=== PATIENT | female | born 1970 | race Caucasian/White ===

== ENCOUNTER 2020-05-18 21:08 | Emergency (ER) | payer MEDICARE, SELFPAY ==
--- NOTE | ~2020-05-18 | CT_ITS ---
EXAMINATION: CT brain wo con EXAM DATE: 05/18/2020 21:56 INDICATION: Generalized headache. TECHNIQUE: Spiral CT of the head was performed without contrast. Axial, coronal and sagittal images were reviewed. The dose-length product (DLP) for this examination was 605.33 mGy-cm. The exposure w as tailored according to patient size, and iterative reconstruction (ASIR) was used as additional dos e reduction technique. There is no prior study for comparison. FINDINGS: There is no acute intraparenchymal hemorrhage. No evidence of intraparenchymal brain mass lesion. No evidence of acute infarction. There is no mass effect or midline shift. The ventricles are normal in size. There are no extra-axial collections. There are no acute calvarial fractures. T he orbits are unremarkable. Soft tissue is unremarkable. The visualized sinuses and mastoid air melita ls are well aerated. IMPRESSION: 1. No acute intracranial findings. Reviewed, dictated and finalized at location A.
[2020-05-18 21:15] VITALS: BP 108/64; PULSE 75; RESP 16; TEMP 36.9; O2SAT 98
--- NOTE | 2020-05-18 21:20 | ED.GENADULT ---
HPI - General Adult General Chief complaint: Psychiatric Symptoms <Wilson Stevens DO - Last Filed: 05/25/20 23:39> Stated complaint: SI <Wilson Stevens DO - Last Filed: 05/25/20 23:39> Time Seen by Provider: 05/19/20 07:07 <Wilson Stevens DO - Last Filed: 05/25/20 23:39> Source: RN notes reviewed <Wilson Stevens DO - Last Filed: 05/25/20 23:39> History of Present Illness HPI narrative: Patient presents emergency department via EMS for suicidal ideation. Patient states she has been having suicidal thoughts. She states that yesterday she had access to a gun and thought about she and her self but did not act on her thoughts. She states she is depressed because her children want nothing to do with her. Patient states she does have a history of depression bipolar but is not been taking her medications regularly. She denies any other attempts at harming herself denies any recent illness <Wilson Stevens DO - Last Filed: 05/25/20 23:39> Related Data Home medications: Home Medications Medication Instructions Recorded Confirmed clonazepam [Klonopin] 1 mg PO BID 05/18/20 divalproex [Depakote] 500 mg PO Q12H 05/18/20 duloxetine [Cymbalta] 30 mg PO DAILY 05/18/20 pyrilamine-chlophedianol [Ninjacof] ml PO 05/18/20 tizanidine [Zanaflex] 4 mg PO BID PRN 05/18/20 tramadol mg PO PRN 05/18/20 venlafaxine [Effexor XR] 150 mg PO DAILY 05/18/20 zolpidem 10 mg PO HS PRN 05/18/20 <Wilson Stevens DO - Last Filed: 05/25/20 23:39> Allergies/adverse reactions: Allergies Allergy/AdvReac Type Severity Reaction Status Date / Time All antibiotecs Allergy Severe Anaphylaxis Uncoded 05/18/20 21:49 <DO Nicole Harrison Last Filed: 05/25/20 23:39> Review of Systems Review of Systems: Narrative: Gen.: Denies fevers or chills ENT: Denies congestion Respiratory: Denies shortness of breath or cough CV: Denies chest pain or palpitations GI: Denies abdominal pain nausea, emesis or diarrhea Musculoskeletal: Denies back pain or muscle pain Neuro: Denies numbness, tingling, weakness or focal weakness Skin: Denies rash Psych: See HPI Except as documented, all other systems reviewed and negative <Wilson Stevens DO - Last Filed: 05/25/20 23:39> [facility] Past Medical History Medical History: Medical History (Updated 05/21/20 @ 00:00 by Jairo Garcia) Bipolar disorder Depression <Wilson Stevens DO - Last Filed: 05/25/20 23:39> Social History Social History: Social History (Updated 05/18/20 @ 21:21 by Wilson Stevens DO) Smoking packs per day: 1 Smoking cigarettes per day: 20.0 <Wilson Stevens DO - Last Filed: 05/25/20 23:39> Exam Narrative: Exam Narrative: APPEARANCE: No acute distress, nontoxic, resting in bed EYES: EOMI HEENT: Normocephalic, atraumatic, OMM RESPIRATORY: No respiratory distress Clear to auscultation bilaterally with no rhonchi wheezing or rales. CARDIOVASCULAR: Regular rate and rhythm without murmurs rubs or gallops. ABDOMINAL: Soft, nontender, nondistended, no rebound or guarding MUSCULOSKELETAl: Moves all extremities. No clubbing, cyanosis or edema. NEURO: Awake and alert x 3. Following commands, speech normal, no focal deficits SKIN:: Warm, dry. No rashes lesions or abrasions PSYCHIATRIC: Normal affect/mood, <Wilson Stevens DO - Last Filed: 05/25/20 23:39> Course Course Emergency Course: Patient evaluated by Katie at [facility]. At this time is felt the patient requires inpatient admission Discussed with patient her UTI she states she is allergic to all antibiotics but can take Levaquin. States she cannot take Cipro but Levaquin only <Wilson Stevens DO - Last Filed: 05/25/20 23:39> Reevaluation(s) Reevaluation #1: PAtient states she is ready to go home. She states she is not suicidal . She reported prior to coming in she just wanted to be by herself but she was not going to hurt he
[2020-05-18 21:40] LABS: Glucose Point of Care 70 (65-105)
[2020-05-18 21:56] LABS: Basophils Percent Auto 0.3 % (0.2-1.2); Eosinophils Absolute Auto 0.7 K/mm3 (0-0.3); Eosinophils Percent Auto 11.4 % (0-4.4); Hemoglobin 12.3 g/dL (12.0-15.0); Immature Granulocyte Absolute 0.02 K/mm3 (0.00-0.031); Immature Granulocyte Percent A 0.3 % (0-0.5); Lymphocytes Absolute Auto 2.23 K/mm3 (0.9-3.2); Mean Corpuscular HGB Conc 33.2 g/dl (32-36); Mean Corpuscular Hemoglobin 30.7 pg (26-34); Mean Corpuscular Volume 92.3 fl (80-100); Mean Platelet Volume 11.6 fl (7.4-10.4); Monocytes Absolute Auto 0.7 K/mm3 (0.1-0.6); Monocytes Percent Auto 12.4 % (2.6-8.5); Neutrophils Absolute Auto 2.1 K/mm3 (1.3-6.7); Neutrophils Percent Auto 36.6 % (45.5-73.1); Platelet Count Result 209 k/mm3 (150-375); Red Blood Count 4.01 M/mm3 (4.2-5.4); Red Cell Distribution Width 13.1 % (11.5-14.5); White Blood Count 5.7 K/mm3 (4.5-10.0)
[2020-05-18 22:00] LABS: Add Urine Microscopic? YES; Appearance Urine Clear (Clear); Bacteria Urine Trace /hpf; Bilirubin Urine Negative (Negative); Blood Urine 2+ (Negative); Color Urine Yellow (Yellow); Glucose Urine UA Negative (Negative); Ketones Urine Trace mg/dL (Negative); Leukocyte Esterase Ur 3+ LEU/UL (Negative); Mucus Urine Few /lpf; Nitrate Urine Negative (Negative); Protein Urine Negative (Negative); Specific Grav Ur 1.014 (1.001-1.035); Squamous Epithelial Cell Urine Many /hpf (Few); Urobilinogen Urine Negative mg/dL (<2.0); WBC Urine 16-20 /hpf
[2020-05-18 22:07] LABS: Ethanol < 10 mg/dL (<10)
[2020-05-18 22:13] LABS: Amphetamine Screen Urine Negative (Negative); Barbiturate Screen Urine Negative (Negative); Benzodiazepines Screen Urine Negative (Negative); Cannabinoid Screen Urine Negative (Negative); Cocaine Screen Urine Negative (Negative); Methadone Screen Urine Negative (Negative); Opiate Screen Urine Negative (Negative); Phencyclidine Screen Urine Negative (Negative)
[2020-05-18 22:15] LABS: Alanine Aminotransferase 70 U/L (4-35); Alkaline Phosphatase 122 U/L (38-126); Aspartate Amino Transferase 76 U/L (14-36); Bilirubin,Total 0.5 mg/dL (0.2-1.3); Blood Urea Nitrogen 4 mg/dL (7-17); Calcium 8.9 mg/dL (8.4-10.2); Carbon Dioxide 31 mmol/L (22-30); Chloride 103 mmol/L (98-107); Estimated CRCL calculation 66 ml/min; Estimated Glomerular Filt Rate > 60; Glucose 104 mg/dL (65-105); Potassium 3.6 mmol/L (3.4-5.0); Sodium 138 mmol/L (137-145)
[2020-05-18 22:34] LABS: Glucose Point of Care 77 (65-105)
[2020-05-18] MEDS: ONDANSETRON INJ 4 MG/2 ML VIAL IV PUSH (22:46)
--- NOTE | 2020-05-18 23:21 | PC.NURSE ---
Crisis outreach dispatcher Andree given information on patient-she will dispatch an administrative job titles
--- NOTE | 2020-05-19 | PC.NURSE ---
Katie from Crisis here to evaluate patient
[2020-05-19] MEDS: NICOTINE (*PBKC) 21 MG PATCH 1 PATCH TRANSDERM ×2 (00:02→21:01)
--- NOTE | 2020-05-19 01:44 | PC.NURSE ---
pt given 0.5 ativan IV. bottle fell to floor and broke , unable to scan.
[2020-05-19 02:10] VITALS: BP 114/75; PULSE 63; RESP 16; O2SAT 97
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
--- NOTE | 2020-05-19 02:52 | PC.NURSE ---
Chart faxed to Elinor in [facility] in [facility]
--- NOTE | 2020-05-19 04:31 | PC.NURSE ---
Patient requesting to be given her Ambien from my pill bottles to sleep --patient has already been told that she was given Ativan and would not receive Ambien also. Dr Stevens also at bedside to tell her the same. Patient requesting additional Tylenol for continued headache-again advised that time frame was too close--Dr Stevens made offer of Ibuprofen which patient was agreeable to. Katie called reporting that she spoke with [facility]'s intake and they now want entire chart faxed over (done)
[2020-05-19] MEDS: IBUPROFEN 600 MG TABLET PO (05:04)
[2020-05-19] MEDS: LORAZEPAM 0.5 MG TABLET PO (06:12)
[2020-05-19 07:31] VITALS: BP 114/64; PULSE 64; RESP 18; TEMP 36.3; O2SAT 98
--- NOTE | 2020-05-19 08:10 | PC.NURSE ---
Pt found walking out the ambulance doors, rn hemodialysis charge and MD followed and able to get patient back inside without struggle. Pt moved to room 15 with security at bedside
--- NOTE | 2020-05-19 08:12 | PC.NURSE ---
Pt requesting something to help her sleep. notified
[2020-05-19] MEDS: LORAZEPAM 1 MG TABLET PO (08:25)
--- NOTE | 2020-05-19 08:27 | PC.NURSE ---
Pt stating Im not suicidal or homicidal, why are you keeping me here. I explained that the [employer] lost my medications for a week and i just got them back
--- NOTE | 2020-05-19 09:03 | PC.NURSE ---
Prabhu called to check status of pt placement. Told her that I had not heard back from any facility. she said she would call the facilities and let me know what she finds out
[2020-05-19 10:32] VITALS: BP 125/79; PULSE 66; RESP 16; TEMP 37.2; O2SAT 99
[2020-05-19 11:02] LABS: Valproic Acid 46.1 ug/mL (50-120)
[2020-05-19] MEDS: ACETAMINOPHEN 500 MG TABLET 1000 MG PO (11:15)
--- NOTE | 2020-05-19 12:26 | PC.NURSE ---
Addendum entered by Genevieve Ramos RN 05/19/20 13:51: AT 1030 I ASSUMED CARE OF PT. Original Note: ASSUMED CARE OF PT. RESTING QUIETLY IN ROOM WITH SITTER CONTINUING TO OBSERVE THE PT. LUNCH ORDERED AND VS OBTAINED. PT UPDATED ON STATUS OF POTENTIAL TRANSFER FACILITIES. WILL CONTINUE TO MONITOR
[2020-05-19 13:30] VITALS: BP 130/86; PULSE 80; RESP 16; TEMP 36.8; O2SAT 99
--- NOTE | 2020-05-19 14:04 | PC.NURSE ---
pt c/o of itching and redness to lower arms. asked for benadryl vrbo to give benadryl X1 po to pt from Lenny BRANDT
[2020-05-19 16:00] VITALS: BP 127/89; PULSE 82; RESP 16; TEMP 36.9; O2SAT 100
[2020-05-19 18:00] VITALS: BP 128/77; PULSE 63; RESP 14; TEMP 36.6; O2SAT 100
--- NOTE | 2020-05-19 19:16 | PC.NURSE ---
Received report from AIDEN Blevins. Pt asleep in room, 1:1 staff sitter at bedside. Pt aida CAMARGO swabbed at 1800.
--- NOTE | 2020-05-19 19:42 | ECG_ITS ---
Measurements Intervals [place] Rate: 59 P: 58 NV: 156 QRS: 43 QRSD: 90 T: 58 QT: 421 QTc: 418 Interpretive Statements SINUS BRADYCARDIA WITH MARKED SINUS ARRHYTHMIA BASELINE WANDER- V3-V5 BORDERLINE ECG Electronically Signed On 05-20-2020 7:06:13 CDT by Aaron Song D.O.
[2020-05-19 20:17] LABS: Magnesium 2.1 mg/dL (1.6-2.3)
--- NOTE | 2020-05-19 20:22 | PC.NURSE ---
Pt gave permission to speak with her mother, Marysol. [phone].
[2020-05-19] MEDS: TIZANIDINE HCL 4 MG TABLET PO (21:01)
[2020-05-19] MEDS: clonazePAM 0.5 MG TABLET 1 MG PO (21:01)
--- NOTE | 2020-05-19 21:24 | PC.NURSE ---
Pt asleep, EKG obtained. Pt denies needs at this time,1:1 at bedside. Will continue to monitor.
--- NOTE | 2020-05-19 23:06 | PC.NURSE ---
report given to AIDEN Topete
--- NOTE | 2020-05-19 23:15 | PC.NURSE ---
Patient resting on stretcher, sitter at bedside. Care assumed for this patient.
[2020-05-20] MEDS: IBUPROFEN 600 MG TABLET PO (05:27)
[2020-05-20] MEDS: PHENAZOPYRIDINE HCL 100 MG TABLET 200 MG PO (05:27)
--- NOTE | 2020-05-20 07:42 | PC.NURSE ---
Breakfast tray ordered for patient at this time.
[2020-05-20] MEDS: clonazePAM 0.5 MG TABLET 1 MG PO (08:51)
[2020-05-20] MEDS: TIZANIDINE HCL 4 MG TABLET PO (09:05)
[2020-05-20] MEDS: DULOXETINE HCL 30 MG CAPSULE.DR PO (09:05)
[2020-05-20] MEDS: NICOTINE (*PBKC) 21 MG PATCH 1 PATCH TRANSDERM (09:05)
[2020-05-20] MEDS: VENLAFAXINE HCL XR 75 MG CAP.ER.24H 150 MG PO (09:05)
--- NOTE | 2020-05-20 12:30 | PC.NURSE ---
Patient requesting pain medication for back pain at this time, EDP aware, no new orders
--- NOTE | 2020-05-20 13:00 | PC.NURSE ---
Patient declines lunch at this time.
[2020-05-20] MEDS: DIVALPROEX SODIUM 250 MG TABEC 500 MG PO (14:21)
[2020-05-20] MEDS: traMADol HCL 50 MG TABLET PO (14:21)
[2020-05-20 15:46] VITALS: BP 119/89; PULSE 66; RESP 18; O2SAT 99
[2020-05-20 16:48] VITALS: BP 133/91; PULSE 64; RESP 16; TEMP 37.4; O2SAT 100
[2020-05-20 18:54] LABS: SARS-CoV-2 RNA PCR Negative
== END 2020-05-20 16:49 | disposition home or self-care (01) ==
PROVIDERS: Emergency Medicine; Emergency Provider General Practice
DX: R45.851 Suicidal ideations (principal); F31.9 Bipolar disorder, unspecified; F17.210 Nicotine dependence, cigarettes, uncomplicated; R00.1 Bradycardia, unspecified; Z11.59 Encounter for screening for other viral diseases; Z79.899 Other long term (current) drug therapy
CPT/HCPCS: 36415; 70450; 80053; 80164; 80307; 81001; 81025; 82948; 83735; 84443; 85025; 87086; 87088; 87635; 93005; 96365; 96375; 99284; A9270; C9803; J0131; J2060; J2405; U0003

== ENCOUNTER 2020-06-17 15:53 | Observation (INO) | payer MEDICARE, SELFPAY ==
[2020-06-17] VITALS (49 sets, daily range): BP systolic 99–140; BP diastolic 53–82; PULSE 37–84; RESP 10–30; TEMP 36.5–37; O2SAT 92–100; BMI 26.6; BMI 25.4
--- NOTE | ~2020-06-17 | US_ITS ---
EXAMINATION: US right upper quadrant DATE: 06/18/2020 10:10 INDICATION: Abnormal liver function tests. TECHNIQUE: Multiple grayscale and Doppler ultrasound images of the abdomen were obtained. COMPARISON: None FINDINGS: The visualized portions of the head and body of the pancreas are normal. The liver is abad l without focal lesion. There is normal flow in main portal vein. The gallbladder is absent. The comm on duct is normal and measures 3 mm. IMPRESSION: 1. Normal right upper quadrant ultrasound status post cholecystectomy. Reviewed, dictated and finalized at location A.
--- NOTE | 2020-06-17 16:46 | ECG_ITS ---
Measurements Intervals [place] Rate: 49 P: 146 PA: 132 QRS: 115 QRSD: 88 T: 151 QT: 447 QTc: 406 Interpretive Statements SINUS BRADYCARDIA ARM LEADS REVERSED BORDERLINE T WAVE ABNORMALITY- ANT/INF LEADS ABNORMAL ECG Electronically Signed On 06-18-2020 10:23:32 CDT by Aaron Song D.O.
--- NOTE | 2020-06-17 17:06 | PC.NURSE ---
pt reports having another episode at this time. her heart rate jumped from 40 to 79 - observed on the monitor. pt is diaphoretic and nauseated at this time.
[2020-06-17 17:25] LABS: Basophils Percent Auto 0.4 % (0.2-1.2); Eosinophils Percent Auto 0.5 % (0-4.4); Hematocrit 41.8 % (37.0-47.0); Hemoglobin 14.1 g/dL (12.0-15.0); Immature Granulocyte Absolute 0.02 K/mm3 (0.00-0.031); Immature Granulocyte Percent A 0.3 % (0-0.5); Lymphocytes Absolute Auto 1.51 K/mm3 (0.9-3.2); Lymphocytes Percent Auto 19.9 % (18.3-44.2); Mean Corpuscular HGB Conc 33.7 g/dl (32-36); Mean Corpuscular Hemoglobin 31.4 pg (26-34); Mean Corpuscular Volume 93.1 fl (80-100); Mean Platelet Volume 10.8 fl (7.4-10.4); Monocytes Absolute Auto 0.8 K/mm3 (0.1-0.6); Monocytes Percent Auto 10.6 % (2.6-8.5); Neutrophils Absolute Auto 5.2 K/mm3 (1.3-6.7); Neutrophils Percent Auto 68.3 % (45.5-73.1); Platelet Count Result 241 k/mm3 (150-375); Red Blood Count 4.49 M/mm3 (4.2-5.4); Red Cell Distribution Width 13.2 % (11.5-14.5); White Blood Count 7.6 K/mm3 (4.5-10.0)
[2020-06-17 17:37] LABS: Alanine Aminotransferase 115 U/L (4-35); Albumin Level 4.6 g/dL (3.5-5.1); Alkaline Phosphatase 162 U/L (38-126); Anion Gap 13.5 mmol/L (7-16); Aspartate Amino Transferase 64 U/L (14-36); Bilirubin,Total 0.6 mg/dL (0.2-1.3); Blood Urea Nitrogen 11 mg/dL (7-17); Calcium 9.7 mg/dL (8.4-10.2); Carbon Dioxide 30 mmol/L (22-30); Chloride 99 mmol/L (98-107); Estimated CRCL calculation 66 ml/min; Estimated Glomerular Filt Rate > 60; Glucose 109 mg/dL (65-105); Potassium 4.5 mmol/L (3.4-5.0); Sodium 138 mmol/L (137-145)
[2020-06-17 17:41] LABS: Add Urine Microscopic? YES; Appearance Urine Clear (Clear); Bacteria Urine Trace /hpf; Bilirubin Urine Negative (Negative); Blood Urine Negative (Negative); Color Urine Yellow (Yellow); Glucose Urine UA Negative (Negative); Ketones Urine Negative (Negative); Leukocyte Esterase Ur 2+ LEU/UL (Negative); Mucus Urine Heavy /lpf; Nitrate Urine Negative (Negative); Protein Urine 1+ mg/dL (Negative); Specific Grav Ur 1.023 (1.001-1.035); Squamous Epithelial Cell Urine Many /hpf (Few); WBC Urine 16-20 /hpf
--- NOTE | 2020-06-17 17:45 | ED.WEAKNESS ---
HPI - Weakness General Chief complaint: Weakness Stated complaint: episodes of sweating, nausea Time Seen by Provider: 06/17/20 16:57 Source: patient Mode of arrival: ambulatory Limitations: no limitations History of Present Illness HPI Narrative: This patient is a 49 year old female who presents for evaluation of intermittent spells of near syncope. Patient states she will be at rest when she developed sensation that she is going to pass out. She also reports she becomes diaphoretic, nauseated and she feels palpitations. She denies chest pain or sob. While in ER, patient's family reported that patient had an episode and she saw her Heart rate decreased to 39. These episodes have been occurring frequently for 3 days. Related Data Home Medications Medication Instructions Recorded Confirmed clonazepam [Klonopin] 1 mg PO BID 05/18/20 divalproex [Depakote] 500 mg PO Q12H 05/18/20 duloxetine [Cymbalta] 30 mg PO DAILY 05/18/20 pyrilamine-chlophedianol [Ninjacof] ml PO 05/18/20 tizanidine [Zanaflex] 4 mg PO BID PRN 05/18/20 tramadol mg PO PRN 05/18/20 venlafaxine [Effexor XR] 150 mg PO DAILY 05/18/20 zolpidem 10 mg PO HS PRN 05/18/20 dextroamphetamine-amphetamine 20 mg PO DAILY 06/17/20 [Adderall] Allergies Allergy/AdvReac Type Severity Reaction Status Date / Time All antibiotecs Allergy Severe Anaphylaxis Uncoded 06/17/20 17:21 Review of Systems Review of Systems: All systems reviewed & are unremarkable except as noted in HPI and below Constitutional: Constitutional: Denies chills and Denies fever(s) Eyes: Eyes: Denies change in vision Cardiovascular: Cardiovascular: Denies chest pain and Reports palpitations Respiratory: Respiratory: Denies cough, Denies dyspnea and Denies wheezing Gastrointestinal: Gastrointestinal: Denies abdominal pain, Reports nausea and Denies vomiting PMFSH Past Medical History Medical History (Updated 06/17/20 @ 23:56 by Pam Orlando MD) Bipolar disorder Depression Surgical History Surgical History (Updated 06/17/20 @ 17:48 by Pam Orlando MD) H/O: hysterectomy Social History Social History (Updated 05/18/20 @ 21:21 by Wilson Stevens DO) Smoking packs per day: 1 Smoking cigarettes per day: 20.0 Gender identity (if verbalized by the patient): Female Exam Narrative: Exam Narrative: GENERAL: Well-appearing, well-nourished, and in no acute distress. HEAD: Normocephalic, atraumatic EYES: PERRLA and EOMI, conjunctiva clear without discharge EARS: TM's clear bilaterally without erythema or dullness NOSE: Nares clear, no rhinorrhea or epistaxis THROAT:Mucous membranes moist, Oropharynx normal without erythema, exudate, peritonsillar swelling or fluctuance NECK: Supple, without lymphadenopathy or mass RESPIRATORY: No respiratory distress, Airway patent, Respirations non-labored, Clear to auscultation without rales, rhonchi or wheeze HEART: regular rhythm with cheryl cardic rate. No murmur heard. Normal peripheral pulses. ABDOMEN: Soft, nontender, nondistended, normal active bowel sounds. No masses. No rebound or guarding, No organomegaly. EXTREMITIES: No edema, normal strength with full range of motion. SKIN: Warm, dry, normal color without rash NEURO: Alert and oriented x3. CN 2-12 grossly intact. No focal deficits. PSYCH: Normal mood and affect. Course Reevaluation(s) Reevaluation #1: PAtient was given atropine 0.5 mg. Her heart rate responded for a couple hours. Her heart rate was in the 60-80s during that time. She did not appear to have any episodes. Date: 06/17/20 Time: 21:30 Consultations Consultation #1: I discussed case with DR Scott Bentley of cardiology and he states they will see patient in the morning. Date: 06/17/20 Time: 19:28 Consultation #2: Dahlia accepts patient to service Date: 06/17/20 Time: 19:42 Vital Signs Vital signs: Vital Signs Temperature 98.3 F 06/17/20 16:22 Pulse Rate 52 L 06/17/20
[2020-06-17 17:53] LABS: Magnesium 2.1 mg/dL (1.6-2.3)
[2020-06-17 17:56] LABS: INR 1.1; Prothrombin Time 13.8 Seconds (11.1-14.7)
[2020-06-17 17:57] LABS: Partial Thromboplastin Time 26.4 SECONDS (22.3-36.8)
[2020-06-17 18:05] LABS: Troponin I < 0.012 ng/mL (0.000-0.034)
[2020-06-17] MEDS: PROMETHAZINE HCL 25 MG/ML AMPUL 12.5 MG IV PUSH ×2 (18:09→22:40)
--- NOTE | 2020-06-17 19:30 | PC.NURSE ---
Per pt sister pt had another episode of hr jumping from 39-80 this time. upon rn arrival pt is pale and diaphoretic, a+O x 4. and just feels weak.
[2020-06-17] MEDS: ATROPINE SULFATE 0.4 MG/ML VIAL 0.5 MG IV PUSH (20:13)
[2020-06-17] MEDS: IBUPROFEN 600 MG TABLET PO (22:06)
--- NOTE | 2020-06-17 23:38 | ADMGEN ---
This patient, Flora Arevalo, was admitted to Medical Room 342-01. Patient/family oriented to hospital policies and general routines including ID bracelet, bed and alarms, visiting hours, pain management, procedures, bathroom and other care routines, personal items, smoking policy, room service/diet, and visiting hours. Valuables list has been completed. Information on how to activate the Rapid Response Team has been discussed. Patient/Family are encouraged to report perceived risks to care and to ask questions if they do not understand what they are told or what they should do.
[2020-06-18] VITALS (9 sets, daily range): BP systolic 115–132; BP diastolic 54–67; PULSE 38–86; RESP 16–18; TEMP 36.4–37; O2SAT 96–99
--- NOTE | 2020-06-18 00:19 | PC.NURSE ---
Patient risk of suicide assessment is 5. Dr. Smith was informed, no new orders received.
--- NOTE | 2020-06-18 06:54 | PC.NURSE ---
Patient states she is allergic to all antibiotics except azactim and levaquin. The patient was only able to recall a few specific antibiotics she has had reactions to but states that nearly all antibiotics result in anaphylaxis. 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
[2020-06-18 09:21] LABS: Hepatitis B Surface Antigen Negative (Negative)
[2020-06-18 09:26] LABS: HAV RESULT Negative (Negative); Hepatitis B Core IgM Result Negative (Negative)
[2020-06-18 09:38] LABS: Hepatitis C Virus Antibody Negative (Negative)
[2020-06-18] MEDS: VENLAFAXINE HCL XR 75 MG CAP.ER.24H 150 MG PO (10:41)
[2020-06-18] MEDS: DULoxetine HCL 30 MG CAPSULE.DR PO (10:41)
[2020-06-18] MEDS: DIVALPROEX SODIUM 250 MG TABEC 500 MG PO ×2 (10:41→20:17)
[2020-06-18] MEDS: ONDANSETRON HCL ODT 4 MG TABLET PO (11:38)
--- NOTE | 2020-06-18 15:03 | PM.CNCAR ---
Assessment and Plan Assessment and plan (1) Near syncope: Code(s): R55 - Syncope and collapse Status: Acute Assessment and Plan: Etiology unclear. Patient reports decreased oral intake but continue to take several of her psychiatric medications. It is unclear if the symptoms or side effects and/or drug interactions in conjunction with intravascular volume depletion. Possible excessive vagal tone may have contributed to intermittent bradycardia, however, no evidence of pathologic bradycardia to explain these recurrent episodes, prolonged pauses or high-grade AV blocks. Furthermore, since admission recurrent episodes have all been associated with sinus rhythm with a reasonable heart rate of 48-72 bpm while lying in bed. These are not clearly associated with position change. -As such, I do not believe intermittent bradycardia is associated with these episodes and may be either be coincidental or a consequence of her symptom complex. -Continue telemetry observation overnight. -Apnea link to assess for PRECIOUS. -2D echocardiogram to exclude structural heart disease although her exam does not corroborate clinical pathology. -Check orthostatic vital signs. Further evaluation is indicated regards to history of seizure disorder and or the ability to simplify her medical therapy. (2) Bradycardia: Code(s): R00.1 - Bradycardia, unspecified Status: Acute Assessment and Plan: As above. No pathologic pauses or Evidence of symptomatic bradycardia. May ambulate patient and negron to observe heart rate response to assess for chronotropic incompetence. While her medications may be contributing in some fashion I will defer this to primary service. (3) Abnormal LFTs: Code(s): R94.5 - Abnormal results of liver function studies Status: Acute Assessment and Plan: Etiology unclear at this time. Negative right upper quadrant ultrasound. Hepatitis screen negative. COVID-19 negative patient denies alcohol or recent illicit substance abuse. Possible medication side effect and/or gastroenteritis prior to admission. Continue trend. Defer to primary service. (4) Depression: Code(s): F32.9 - Major depressive disorder, single episode, unspecified Status: Acute Assessment and Plan: As above. (5) Bipolar disorder: Code(s): F31.9 - Bipolar disorder, unspecified Status: Acute Assessment and Plan: As above. History of Present Illness History of Present Illness Consult date/time: Date of Service: 06/18/20 15:03 This is a Cardiology consultation at the request of Henny De Souza for the [facility] for my opinion regarding bradycardia and near syncope. Requesting physician: Henny De Souza PA-C Consult reason: Other ( Bradycardia, near-syncope) Reason For Visit: bradycardia, near syncope Narrative: patient is an otherwise pleasant 49-year-old female with a past medical history significant for depression, anxiety, bipolar disorder who presented to the emergency department complains of 3-4 days intermittent complains of near syncope. Patient states she would wake up in the middle the night feeling like she was gasping for air, feeling scared with a cold sweat, and while lying and/or sitting with initial feeling that she was about to pass out flushing of her face feeling hot and cold. she states this is similar to right before the fall asleep with sedation. She denies fevers, chills, syncope at any time. No chest pain or shortness of breath. Sister is at bedside and states they had documented heart rate of 41 beats per minute during one of these episodes with blood pressure 140/80's prior to admission. These episodes would occur randomly and the predominant symptoms would resolve in 1-1/2 minutes but then she would feel fatigued and states it would take over 30 minutes for her to feel better and back to normal. She denies a prior histo
--- NOTE | 2020-06-18 16:04 | PM.IMHP ---
H&P: HPI History of Present Illness Chief complaint: bradycardia, near syncope Narrative: Flora Arevalo is a 49 year old female with PMH significant for rheumatoid arthritis, seizure disorder, bipolar disorder, anxiety, depression, ADHD, and low back pain who presented to the emergency department for the evaluation of near syncope. Onset was 3 days ago. She had 3 episodes the first day. The episodes increased in frequency. She had 7-10 episodes yesterday which prompted her to proceed to the emergency department for further evaluation. She notes a sense of doom prior to the onset. Subsequently, she becomes nauseous, diaphoretic, and hot/clammy with tingling. Additionally, she notes lightheadedness. She feels as if her heart is fluttering . Her sister is also at the bedside and describes that her skin becomes very red and she develops white discoloration around the lips. The episodes last for approximately thirty seconds to two minutes. Following the episodes, she is pale and tired. She reports that she primarily develops the episodes during rest and has developed several episodes when her sister was reading scripture to her. One episode occurred when she was walking outside and prompted her to sit down. She is able to engage in conversation during the episodes. She was not eating or drinking well over the past several days but continued to take her medications. She had an episode in the emergency department and her heart rate was noted to be 39. She denies associated headaches, chest pain, and dyspnea. She denies diarrhea. Her blood pressures are well-controlled. She denies nausea, vomiting, and abdominal pain. She denies subjective fever and chills. She has no prior cardiac history. She is unsure of the type of seizure disorder she has but does note that these episodes do not resemble prior seizures. She does not note feeling significantly anxious recently. Initial labs in the emergency department were unremarkable with the exception of elevated liver enzymes with AST 64, ALT 115, and ALP 162. She reports a hx of significant LFT elevation in the 900s several months ago but is unsure why. Troponin was negative. TSH was 2.24. UA appeared contaminated. Valproic acid level was 32. EKG demonstrated sinus bradycardia with rate of 49. She reports that her dose was recently decreased. She was given atropine in the emergency department. Cardiology was consulted for further recommendations and she was admitted to the hospitalist service for further evaluation. She had several episodes earlier in the morning today which were witnessed by care coordination and the nursing staff. At the time of my evaluation, she has not had any further episodes. Review of Systems Review of Systems: Narrative: Constitutional: Denies fever, chills, fatigue, and weight change. Reports that she was eating and drinking less over the past 3 days. Eyes: Denies vision change. No additional eye complaints. ENT: Denies change in hearing, nasal congestion, dysphagia, odynophagia, and sore throat. Reports poor dentition. Cardiovascular: Reports palpitations and lightheadedness with the episodes. Denies chest pain, dyspnea, and dyspnea on exertion. Respiratory: Denies cough and shortness of breath. Gastrointestinal: Denies abdominal pain, nausea, and vomiting. Denies melena and hematochezia. Denies diarrhea and constipation. Genitourinary: Denies dysuria, frequency, urgency, and hesitancy. Musculoskeletal: Reports chronic right sided low back pain/sciatica. Skin: Denies lesions and wounds. Neurologic: Denies focal weakness, confusion, and speech change. Psychiatric: Reports much less anxiety and depression now that she is living here with her sister. She reports significant situational stress when living in [place]. Hematologic: Denies easy bruising and bleeding. All systems reviewed & are unremarkable except as noted in HPI and below PMFSH Past Medical History Medical History (Updated 06/18/20 @ 1
--- NOTE | 2020-06-18 17:32 | ECG_ITS ---
Measurements Intervals [place] Rate: 66 P: 70 [place]: 135 QRS: 62 QRSD: 81 T: 74 QT: 390 QTc: 410 Interpretive Statements SINUS RHYTHM RSR' IN V1 OR V2, CONSIDER RIGHT VENTRICULAR HYPERTROPHY OR RIGHT VCD BORDERLINE ECG Electronically Signed On 06-19-2020 7:05:30 CDT by Aaron Song D.O.
[2020-06-18] MEDS: NICOTINE (*PBKC) 21 MG PATCH 1 PATCH TRANSDERM (18:48)
[2020-06-18] MEDS: ACETAMINOPHEN 325 MG TABLET 650 MG PO (23:48)
[2020-06-19] VITALS (8 sets, daily range): BP systolic 131–136; BP diastolic 79–85; PULSE 53–74; RESP 16–95; TEMP 36.3–36.6; O2SAT 99–100
[2020-06-19] MEDS: traMADol HCL 50 MG TABLET PO (03:25)
[2020-06-19 05:49] LABS: Hematocrit 40.7 % (37.0-47.0); Hemoglobin 13.8 g/dL (12.0-15.0); Mean Corpuscular HGB Conc 33.9 g/dl (32-36); Mean Corpuscular Hemoglobin 31.5 pg (26-34); Mean Corpuscular Volume 92.9 fl (80-100); Mean Platelet Volume 11.2 fl (7.4-10.4); Platelet Count Result 233 k/mm3 (150-375); Red Blood Count 4.38 M/mm3 (4.2-5.4); Red Cell Distribution Width 13.1 % (11.5-14.5); White Blood Count 7.2 K/mm3 (4.5-10.0)
[2020-06-19 05:58] LABS: Alanine Aminotransferase 69 U/L (4-35); Albumin Level 4.1 g/dL (3.5-5.1); Alkaline Phosphatase 131 U/L (38-126); Anion Gap 9.8 mmol/L (7-16); Aspartate Amino Transferase 40 U/L (14-36); Bilirubin,Total 0.6 mg/dL (0.2-1.3); Blood Urea Nitrogen 14 mg/dL (7-17); CRP < 0.5 mg/dL (<1.0); Calcium 9.1 mg/dL (8.4-10.2); Carbon Dioxide 32 mmol/L (22-30); Chloride 102 mmol/L (98-107); Creatine Kinase 26 U/L (30-135); Estimated CRCL calculation 66 ml/min; Estimated Glomerular Filt Rate > 60; Glucose 98 mg/dL (65-105); Lipase 85 U/L (23-300); Magnesium 2.1 mg/dL (1.6-2.3); Phosphorus 3.7 mg/dL (2.5-4.5); Potassium 3.8 mmol/L (3.4-5.0); Sodium 140 mmol/L (137-145)
[2020-06-19] MEDS: DULoxetine HCL 30 MG CAPSULE.DR PO (08:43)
[2020-06-19] MEDS: DIVALPROEX SODIUM 250 MG TABEC 500 MG PO (08:44)
[2020-06-19] MEDS: VENLAFAXINE HCL XR 75 MG CAP.ER.24H 150 MG PO (08:44)
[2020-06-19] MEDS: NICOTINE (*PBKC) 21 MG PATCH 1 PATCH TRANSDERM (08:46)
[2020-06-19 09:23] LABS: Amphetamine Screen Urine Negative (Negative); Barbiturate Screen Urine Negative (Negative); Benzodiazepines Screen Urine Negative (Negative); Cannabinoid Screen Urine Negative (Negative); Cocaine Screen Urine Negative (Negative); Methadone Screen Urine Negative (Negative); Opiate Screen Urine Negative (Negative); Phencyclidine Screen Urine Negative (Negative)
--- NOTE | 2020-06-19 11:30 | NEURO_ITS ---
TEST: ELECTROENCEPHALOGRAM DIAGNOSIS: HISTORY OF SEIZURE PATIENT NUMBER: [id number] EEG NUMBER: [id number] RECORDING DATE: 06/19/20 CLINICAL HISTORY: Patient reports she has been having episodes of dizziness and confusion. CONDITION OF RECORDING: Awake, drowsy and sleep EEG DESCRIPTION: Basic resting occipital frequency consists of large amount of well organized low to medium voltage 8-10hz alpha mixed with minimal amount of low voltage 15-18hz beta. During drowsiness low voltage beta activity is seen diffusely mixed with waxing and waning posterior alpha rhythms. Bilateral symmetrical sleep activity is seen during sleep. Hyperventilation and photic stimulation were not done. Nonparoxysmal. Nonfocal. Nonlateralizing. IMPRESSION: Normal record. [facility]
--- NOTE | 2020-06-19 14:18 | PM.PNCARD ---
Progress Note: A&P Assessment and Plan (1) Near syncope: Code(s): R55 - Syncope and collapse Status: Acute Assessment and Plan: Etiology unclear. She reported decreased oral intake but continued to take several of her psychiatric medications. It is unclear if the symptoms or side effects and/or drug interactions in conjunction with intravascular volume depletion. Possible excessive vagal tone may have contributed to intermittent bradycardia, however, no evidence of pathologic bradycardia to explain these recurrent episodes. No prolonged pauses or high-grade AV blocks. Furthermore, since admission recurrent episodes have all been associated with sinus rhythm with a reasonable heart rate of 48-72 bpm while lying in bed. These are not clearly associated with position change. Intermittent bradycardia may be coincidental or a consequence of her symptom complex. Appropriate heart rate response to activity Apnea link within normal range 2D echocardiogram 06/19/2020:Normal EF. No valvular abnormalities Stay hydrated. (2) Bradycardia: Code(s): R00.1 - Bradycardia, unspecified Status: Acute Assessment and Plan: As above. (3) Abnormal LFTs: Code(s): R94.5 - Abnormal results of liver function studies Status: Acute Assessment and Plan: Etiology unclear at this time. Negative right upper quadrant ultrasound. Hepatitis screen negative. COVID-19 negative. Denies alcohol or recent illicit substance abuse. Possible medication side effect and/or gastroenteritis prior to admission. Continue trend. Defer to primary service. (4) Depression: Code(s): F32.9 - Major depressive disorder, single episode, unspecified Status: Chronic Assessment and Plan: As above (5) Bipolar disorder: Code(s): F31.9 - Bipolar disorder, unspecified Status: Chronic Assessment and Plan: As above (6) Tobacco dependence: Code(s): F17.200 - Nicotine dependence, unspecified, uncomplicated Status: Acute Assessment and Plan: Smoking cessation discussed Additional Plan OK to discharge from a cardiac standpoint. Does not need cardiology follow up Plan discussed with Dr Dowell [id number] Time Spent With Patient Time with patient: less than 15 minutes Subjective Date/time seen: 06/19/20 14:18 Interval history: Follow up for: syncope, bradycardia, depression, bipolar Date of service:06/19/2020 Subjective:Denied chest discomfort, shortness of breath, lightheadedness or palpitations Review of Systems Constitutional: Constitutional: Denies chills, Denies fatigue and Denies night sweats Comments: Last episode 5 pm 06/18/2020 Eyes: Eyes: Denies blurry vision and Denies diplopia ENT: Reports Normal hearing present and Denies epistaxis Cardiovascular: Cardiovascular: Denies chest pain, Denies irregular heart rhythm, Denies leg edema, Denies lightheadedness and Denies dyspnea Respiratory: Respiratory: Denies cough and Denies dyspnea Gastrointestinal: Gastrointestinal: Denies belching, Denies bloating, Denies heartburn, Denies nausea and Denies vomiting Genitourinary: Genitourinary: Denies hematuria Musculoskeletal: Musculoskeletal: Denies back pain and Denies arthralgias Integumentary/Breasts: Skin/Breast: Denies dry skin, Denies lesions and Denies unusual bruising Neurologic: Reports Normal hearing present, Denies dizziness, Denies syncope, Denies numbness, Denies tingling and Denies paresthesias Psychiatric: Psychiatric: Reports depression and Reports memory loss Exam Narrative: Exam Narrative: General: Well developed, alert and oriented x3. No apparent distress, comfortable, pleasant, and cooperative. Head: atraumatic, normocephalic Eyes: EOM intact, sc
--- NOTE | 2020-06-19 15:02 | ECHO_ITS ---
Patient Info Name: Flora Arevalo Age: 49 years : 1970 Gender: Female Ht: 65 in Wt: 153 lbs BSA: 1.80 m2 HR: 60 bpm BP: 132 / 67 mmHg Heart Rhythm: Sinus Rhythm Technical Quality: Good Exam Date: 06/19/2020 9:06 AM Exam Location: [facility] Card Pulmonary Patient Status: Inpatient Admit Date: 06/17/2020 Staff Ordering Physician: Karri Dowell MD Loading Unit Operator Crimping: Sandy Hanks RDCS Attending Provider: Judy Walden PA-C Referring Physician: Magalys CALIX; Exam Type: CA echo doppler color flow Study Info Indications - near syncope Complete two-dimensional, color flow and Doppler transthoracic echocardiogram is performed. Summary 1. Left ventricular systolic function is normal, estimated at 65-70%. 2. There is no increased left ventricular wall thickness. 3. The left ventricular diastolic function is normal. 4. There is mild tricuspid valve regurgitation. 5. No pulmonary hypertension, estimated pulmonary arterial systolic pressure is 26 mmHg. 6. There is no aortic valve stenosis. 7. Epicardial fat pad identified. The pericardium is otherwise unremarkable.. 8. There is trivial pericardial effusion. Left Ventricle Left ventricular chamber dimension is normal. Left ventricular systolic function is normal, estimated at 65-70%. There is no increased left ventricular wall thickness. The left ventricular diastolic function is normal. Right Ventricle Right ventricular chamber dimension is normal. Right ventricular systolic function is normal. Left Atria Left atrial chamber dimension is normal. Right Atria Right atrial chamber dimension is normal. Aortic Valve The aortic valve is trileaflet. There is no aortic valve stenosis. There is no aortic valve regurgitation. Pulmonic Valve The pulmonic valve is normal. There is trace pulmonic regurgitation. Mitral Valve The mitral valve has normal leaflets. There is trace mitral valve regurgitation. Tricuspid Valve The tricuspid valve leaflets are normal. There is mild tricuspid valve regurgitation. No pulmonary hypertension, estimated pulmonary arterial systolic pressure is 26 mmHg. Pericardium/Pleural Epicardial fat pad identified. The pericardium is otherwise unremarkable.. There is trivial pericardial effusion. Inferior Vena Cava Normal inferior vena cava with >50% collapse upon inspiration consistent with normal right atrial pressure, 5 mmHg. Aorta The aortic root size at the sinus of Valsalva is normal. Left Ventricular Outflow Tract Name Value Normal LVOT 2D LVOT Diameter 2.0 cm LVOT Doppler LVOT Peak Gradient 6 mmHg LVOT Mean Gradient 3 mmHg LVOT VTI 24 cm LVOT VTI/AV VTI Ratio 0.8 LVOT Stroke Volume 77 ml LVOT CO 15.1 l/min LVOT CI 8.4 l/min/m2 Pulmonic Valve Name Value N
--- NOTE | 2020-06-19 20:54 | PM.DS ---
DS: Admitting Diagnosis Admitting Diagnosis Admitting Diagnosis: Syncope and collapse DS: Discharge Diagnosis Discharge Diagnosis (1) Near syncope: Code(s): R55 - Syncope and collapse Status: Acute Assessment and Plan: Her clinical picture suggests vasovagal episodes with flushing with an unknown trigger. A physiologic explanation such as emotional stress is possible although she does not seem to identify this as a trigger. Her medications/polypharmacy could also be a possibility. Evaluated by cardiology and neurology. CT brain normal, echo normal, EEG normal. (2) Bradycardia: Code(s): R00.1 - Bradycardia, unspecified Status: Acute Assessment and Plan: Seem to be a result of one of these episodes. Other episodes were witness here in the hospital and heart rates ranged from 48-72, does not appear to be the cause of the episodes. Apnea link is normal. (3) Abnormal LFTs: Code(s): R94.5 - Abnormal results of liver function studies Status: Chronic Assessment and Plan: Chronic. RUQ ultrasound was ordered and was unremarkable. Her mild LFT elevation may be medication-induced. Follow up outpatient. (4) Seizure disorder: Code(s): G40.909 - Epilepsy, unspecified, not intractable, without status epilepticus Status: Chronic Assessment and Plan: Continue divalproex. EEG normal. (5) Anxiety: Code(s): F41.9 - Anxiety disorder, unspecified Status: Chronic Assessment and Plan: Chronic. Continue clonazepam PRN. (6) Depression: Code(s): F32.9 - Major depressive disorder, single episode, unspecified Status: Chronic Assessment and Plan: Chronic. Continue venlafaxine and duloxetine. Recent inpatient psychiatric admission due to suicidal ideations. She denies suicidal or homocidal thoughts day of discharge. Her mood is stable today and she is pleasant. (7) Bipolar disorder: Code(s): F31.9 - Bipolar disorder, unspecified Status: Chronic Assessment and Plan: Chronic. Continue venlafaxine and duloxetine. (8) Low back pain: Code(s): M54.5 - Low back pain Status: Chronic Assessment and Plan: Chronic with no acute issues. Continue tramadol. (9) Tobacco dependence: Code(s): F17.200 - Nicotine dependence, unspecified, uncomplicated Status: Acute Assessment and Plan: Encouraged smoking cessation. DS: Summary Hospital Course Hospital Course: Date of Service 06/19/20 Ms. Arevalo is a 49 yo F with history of depression, anxiety, and bipolar disorder who presented to the ED for evaluation of flushing episodes with near syncope. She described episodes began 3 days ago and were increasing in frequency, happening 7 to 10 times the day of arrival. She described I get hot and my face turns red, then I feel clammy, then my face turns pale white and I start sweating. She is able to speak during the episodes and a few of the episodes are witnessed by staff. Bradycardia was noted during one episode and cardiology was consulted. She did describe she has been started on Celexa and was trying to wean herself off Effexor, so some days she will take half the dose of Effexor, or none of it. She is prescribed several other medications including ambien and adderall and she admits she is not taking them as prescribed. Also had not been eating or drinking much in the last few days. Ultimately the etiology of her episodes is unclear however it is possible that there is a psychosomatic component or reaction related to her medications/not eating. Extensive workup was essentially unremarkable. CT brain was normal. Echocardiogram was normal. EE
== END 2020-06-19 16:40 | disposition home or self-care (01) ==
LOC: ANHED 16:59 → ANH2MED 21:41 → ANH3MED 23:17
PROVIDERS: Physician Assistant; Admitting Provider Internal Medicine; Emergency Provider General Practice; Visit Provider Physician Assistant
DX: R55 Syncope and collapse (principal); R00.1 Bradycardia, unspecified; R94.5 Abnormal results of liver function studies; G40.909 Epilepsy, unspecified, not intractable, without status epilepticus; R53.1 Weakness; F41.9 Anxiety disorder, unspecified; F31.9 Bipolar disorder, unspecified; M54.5 Low back pain; F17.210 Nicotine dependence, cigarettes, uncomplicated; M06.9 Rheumatoid arthritis, unspecified; Z79.899 Other long term (current) drug therapy
CPT/HCPCS: 36415; 76705; 80053; 80074; 80164; 80307; 81001; 82550; 83036; 83690; 83735; 84100; 84443; 84484; 85025; 85027; 85610; 85730; 86140; 87086; 93005; 93306; 94762; 95816; 96374; 96375; 96376; 99285; A9270; G0378; J0461; J2550

== ENCOUNTER 2020-07-17 20:03 | Emergency (ER) | payer SELFPAY ==
--- NOTE | ~2020-07-17 | XR_ITS ---
EXAMINATION: CT abdomen pelvis wo con, XR abdomen/kub 1V DATE: 07/17/2020 20:40 (accession [id number]), 07/17/2020 20:44 (accession [id number]) INDICATION: Pelvic and back pain TECHNIQUE: Computed tomography (CT) of the abdomen and pelvis was performed without intravenous contr ast. The dose-length product was 443.98 mGy-cm. Automated exposure control and iterative reconstructi on technique were employed. KUB. COMPARISON: None. FINDINGS: Lung bases are unremarkable. There are breast implants. Heart size normal. No significant p leural or pericardial effusion. No significant vascular abnormality. No lymphadenopathy. Status post cholecystectomy. The liver, spleen, pancreas, adrenal glands or kidneys are unremarkable. No renal/ureteral stones or hydronephrosis. There are cholecystectomy clips. No free air or free flu id. Bladder is decompressed. KUB: Nonobstructive bowel gas pattern. There are pelvic phleboliths. There are surgical changes of th e rectum. There are cholecystectomy clips. IMPRESSION: 1. No acute abdominal abnormality. Reviewed, dictated and finalized at location A. IMPRESSION: 1. No acute abdominal abnormality.
[2020-07-17 20:01] VITALS: BP 152/92; PULSE 84; RESP 18; TEMP 37.3; O2SAT 99
--- NOTE | 2020-07-17 20:16 | ED.GENADULT ---
HPI - General Adult General Chief complaint: Unspecified Stated complaint: back pain Time Seen by Provider: 07/17/20 20:03 Source: patient Mode of arrival: EMS Limitations: no limitations History of Present Illness HPI narrative: Patient is a 49-year-old female who presents with low back pain that is been present for the last several days radiating to the right flank suprapubic region concern for possible urinary tract infection noting some burning with urination patient notes history of urolithiasis. Patient denies any fever chills vomiting but does note some nausea. Patient on arrival per EMS in the room in no distress Related Data Home Medications Medication Instructions Recorded Confirmed clonazepam [Klonopin] 1 mg PO BID 05/18/20 06/18/20 divalproex [Depakote] 500 mg PO Q12H 05/18/20 06/18/20 duloxetine [Cymbalta] 30 mg PO DAILY 05/18/20 06/18/20 tizanidine [Zanaflex] 4 mg PO BID PRN 05/18/20 06/18/20 tramadol 50 mg PO Q6H PRN 05/18/20 06/18/20 venlafaxine [Effexor XR] 150 mg PO DAILY 05/18/20 06/18/20 zolpidem 10 mg PO HS PRN 05/18/20 06/18/20 dextroamphetamine-amphetamine 20 mg PO DAILY 06/17/20 06/18/20 [Adderall] Allergies Allergy/AdvReac Type Severity Reaction Status Date / Time amoxicillin Allergy Severe Anaphylaxis Verified 06/18/20 06:59 cephalexin [From Keflex] Allergy Severe Anaphylaxis Verified 06/18/20 06:59 ciprofloxacin Allergy Severe Anaphylaxis Verified 06/18/20 06:59 Penicillins Allergy Severe Anaphylaxis Verified 06/18/20 06:59 piperacillin Allergy Severe Anaphylaxis Verified 06/18/20 06:59 sulfamethoxazole Allergy Severe Anaphylaxis Verified 06/18/20 06:59 [From Bactrim] trimethoprim [From Bactrim] Allergy Severe Anaphylaxis Verified 06/18/20 06:59 Review of Systems Review of Systems: All systems reviewed & are unremarkable except as noted in HPI and below PMFSH Past Medical History Medical History Anxiety Bipolar disorder Depression Hemorrhoids Low back pain Nephrolithiasis Rheumatoid arthritis Seizure disorder Surgical History Surgical History H/O: hysterectomy Hx of appendectomy Hx of cholecystectomy Family History Family History Sibling Hypothyroidism Mother Hypertension Grandparent Pancreatic cancer Grandparent Coronary artery disease Social History Social History Social History: Ms. Arevalo is from [place] but she is currently in town staying with her sister Sandra Raygoza. She smokes 0.5PPD. She reports infrequent alcohol use and states that she may have 1 drink per week. She reports a hx of marijuana use but denies illicit substance use at this time. She wishes to be a full code and has designated her sister, Sadia Raygoza, as her surrogate decision maker. Smoking packs per day: 0.5 Smoking cigarettes per day: 10.0 Years smoked: 25 Smoking pack-years: 12.50 Smoking status: Current every day smoker Tobacco type: cigarettes Alcohol intake: current Drinks per week: 1 Substance use type: marijuana Additional occupation/education comments: Disability Gender identity (if verbalized by the patient): Female Spiritual care concerns: No Exam Narrative: Exam Narrative: GENERAL: Well-appearing, well-nourished, and in no acute distress. HEAD: Normocephalic, atraumatic. EYES: PERRLA and EOMI. ENT: Nares clear, no rhinorrhea or epistaxis. Mucous membranes moist. CHEST: Clear to auscultation. No respiratory distress. No wheezes rales or rhonchi HEART: Regular rate and rhythm. No murmur heard. Normal peripheral pulses. ABDOMEN: Soft, nontender, nondistended EXTREMITIES: Normal range of motion. No edema. SKIN: Warm, dry, no rash. NEURO: No focal deficits. Alert and oriented x3. PSYCH: Normal mood and affect. Cou
[2020-07-17] MEDS: SODIUM CHLORIDE 0.9% IV 1,000 ML 999 ML IV CONT (20:36)
[2020-07-17] MEDS: METOCLOPRAMIDE HCL INJ 10 MG/2 ML VIAL IV PUSH (20:36)
[2020-07-17] MEDS: diphenhydrAMINE HCl INJ 50 MG/ML VIAL 25 MG IV PUSH (20:36)
[2020-07-17 21:02] LABS: Basophils Absolute Auto 0.1 K/mm3 (0.0-0.1); Basophils Percent Auto 0.6 % (0.2-1.2); Eosinophils Absolute Auto 0.2 K/mm3 (0-0.3); Eosinophils Percent Auto 2.8 % (0-4.4); Hematocrit 37.2 % (37.0-47.0); Hemoglobin 12.9 g/dL (12.0-15.0); Immature Granulocyte Absolute 0.02 K/mm3 (0.00-0.031); Immature Granulocyte Percent A 0.3 % (0-0.5); Lymphocytes Absolute Auto 2.89 K/mm3 (0.9-3.2); Mean Corpuscular HGB Conc 34.7 g/dl (32-36); Mean Corpuscular Hemoglobin 31.5 pg (26-34); Mean Platelet Volume 10.4 fl (7.4-10.4); Monocytes Absolute Auto 0.7 K/mm3 (0.1-0.6); Monocytes Percent Auto 9.2 % (2.6-8.5); Neutrophils Absolute Auto 3.9 K/mm3 (1.3-6.7); Neutrophils Percent Auto 50.1 % (45.5-73.1); Platelet Count Result 300 k/mm3 (150-375); Red Blood Count 4.09 M/mm3 (4.2-5.4); Red Cell Distribution Width 12.6 % (11.5-14.5); White Blood Count 7.8 K/mm3 (4.5-10.0)
[2020-07-17 21:07] LABS: Add Urine Microscopic? YES; Appearance Urine Clear (Clear); Bacteria Urine Trace /hpf; Bilirubin Urine Negative (Negative); Blood Urine Negative (Negative); Color Urine Yellow (Yellow); Glucose Urine UA Negative (Negative); Ketones Urine Negative (Negative); Leukocyte Esterase Ur 2+ LEU/UL (Negative); Mucus Urine Rare /lpf; Nitrate Urine Negative (Negative); Protein Urine Negative (Negative); RBC Urine 0-2 /hpf (0-2); Specific Grav Ur 1.017 (1.001-1.035); Squamous Epithelial Cell Urine Few /hpf (Few); Urobilinogen Urine Negative mg/dL (<2.0)
[2020-07-17 21:12] LABS: Alanine Aminotransferase 16 U/L (4-35); Albumin Level 4.2 g/dL (3.5-5.1); Alkaline Phosphatase 125 U/L (38-126); Anion Gap 8 mmol/L (8-16); Aspartate Amino Transferase 22 U/L (14-36); Bilirubin,Total 0.4 mg/dL (0.2-1.3); Blood Urea Nitrogen 11 mg/dL (7-17); Calcium 8.9 mg/dL (8.4-10.2); Carbon Dioxide 27 mmol/L (22-30); Chloride 102 mmol/L (98-107); Estimated CRCL calculation 51 ml/min; Estimated Glomerular Filt Rate 59; Glucose 86 mg/dL (65-105); Potassium 3.7 mmol/L (3.4-5.0); Sodium 137 mmol/L (137-145)
[2020-07-17 21:34] VITALS: BP 135/64; PULSE 84; RESP 19; TEMP 36.3; O2SAT 100
== END 2020-07-17 21:35 | disposition home or self-care (01) ==
PROVIDERS: Emergency Medicine Emergency Medical Services; Emergency Provider Emergency Medicine
DX: N39.0 Urinary tract infection, site not specified (principal); F41.9 Anxiety disorder, unspecified; F31.9 Bipolar disorder, unspecified; G40.909 Epilepsy, unspecified, not intractable, without status epilepticus; M06.9 Rheumatoid arthritis, unspecified
CPT/HCPCS: 36415; 74018; 74176; 80053; 81001; 85025; 87086; 96361; 96365; 96375; 99284; J0131; J1200; J2765; J7030